=== PATIENT | female | born 1990 | race Caucasian/White ===

== ENCOUNTER 2024-08-02 18:38 | Emergency (ER) | payer OTHER ==
[2024-08-02 19:11] VITALS: BP 107/64; PULSE 87; RESP 18; TEMP 98.4; BMI 21.2
[2024-08-02] MEDS ORDERED: IBUPROFEN 600 MG TABLET (FP) PO ONE (19:55)
[2024-08-02] MEDS: IBUPROFEN 600 MG TABLET (FP) PO ONE (19:58)
== END 2024-08-02 21:05 | disposition home or self-care (01) ==
LOC: FER 18:38
DX: S16.1XXA Strain of muscle, fascia and tendon at neck level, initial encounter (principal); S39.012A Strain of muscle, fascia and tendon of lower back, initial encounter; V89.2XXA Person injured in unspecified motor-vehicle accident, traffic, initial encounter
CPT/HCPCS: 72100-TC-FY; 81025; 99284-25